=== PATIENT | male | born 1975 | race Caucasian/White ===

== ENCOUNTER → 2017-02-20 | Outpatient (REF) ==
[~2017-02-20] MED LIST: LORTAB 7.5/5001 TAB PO; NO HOME MEDICATIONS; PERCOCET 325 MG1 TA2 PO; ZITHROMAX Z PA250 MG PO
== END ==
LOC: WSOH 08:13
DX: Z00.00 Encounter for general adult medical examination without abnormal findings (principal)

== ENCOUNTER → 2019-06-28 | Outpatient (CLI) | payer BC | LOC: COL.RAD 06-18 07:30 | DX: M51.27 Other intervertebral disc displacement, lumbosacral region (principal); M51.36 Other intervertebral disc degeneration, lumbar region; M46.87 Other specified inflammatory spondylopathies, lumbosacral region ==

== ENCOUNTER 2020-01-23 07:14 | Emergency (ER) | payer BC ==
[~2020-01-23] VITALS: Ht 180.3 cm; Wt 90.0 kg
[2020-01-23 07:21] VITALS: BP 129/77; PULSE 73; TEMP 98.2
== END 2020-01-23 08:43 | disposition home or self-care (01) ==
LOC: COL.ER 07:14
DX: T15.02XA Foreign body in cornea, left eye, initial encounter (principal); X58.XXXA Exposure to other specified factors, initial encounter; Y92.009 Unspecified place in unspecified non-institutional (private) residence as the place of occurrence of the external cause

== ENCOUNTER 2021-03-06 18:42 | Emergency (ER) | payer BC ==
[~2021-03-06] VITALS: Ht 177.8 cm; Wt 88.2 kg
[2021-03-06 18:50] VITALS: TEMP 98
[2021-03-06] MEDS ORDERED: ATARAX 25MG25 MG/TAB PO (19:18)
[2021-03-06] MEDS ORDERED: PREDNISONE20 MG PO (19:18)
[2021-03-06 19:43] VITALS: BP 152/87; PULSE 61
== END 2021-03-06 19:43 | disposition home or self-care (01) ==
LOC: COL.ER 18:42
DX: T78.40XA Allergy, unspecified, initial encounter (principal)
CPT/HCPCS: J1100; J1200

== ENCOUNTER → 2024-03-19 | Outpatient (REF) | payer BC ==
[~2024-03-19] MED LIST changes: +ATARAX 25MG25 MG/TAB PO; +FLEXERIL 1010 MG/TAB PO; +NORCO 325 MG-51 TAB PO; +PREDNISONE20 MG PO; +TESSALON P100 MG/CAP PO
[2024-03-23 16:37] LABS: EOSINOPHIL 4 % (0-4); LYMPHOCYTE 33 % (20.0-51.0); NEUTROPHILS 49 % (42.0-75.2)
[2024-03-23 16:38] LABS: PLATELET ESTIMATE NORMAL (NORMAL); POIKILOCYTOSIS 2+
== END ==
LOC: ZCOL.LAB 13:07
PROVIDERS: Family Medicine
DX: C34.91 Malignant neoplasm of unspecified part of right bronchus or lung (principal)